=== PATIENT | female | born 1985 | race African-American/Black ===

== ENCOUNTER 2017-11-28 09:37 | Emergency (ER) | payer OTHER ==
[~2017-11-28] VITALS: Ht 160 cm; Wt 61.7 kg
[~2017-11-28 09:37] MED LIST: BUTALB-APAP-CA1 EACH PO; MACROBID 100 M100 M1 PO; PRENATE AM TAB1 EACH; ZOFRAN ODT4 MG PO
[2017-11-28] MEDS ORDERED: NORFLEX100 MG PO (11:33)
[2017-11-28] MEDS ORDERED: IBUPROFEN 800800 M1 PO (11:33)
[2017-11-28 13:25] VITALS: BP 106/74
== END 2017-11-28 12:05 | disposition home or self-care (01) ==
LOC: ER 09:37
DX: S16.1XXA Strain of muscle, fascia and tendon at neck level, initial encounter (principal); S39.012A Strain of muscle, fascia and tendon of lower back, initial encounter; S09.93XA Unspecified injury of face, initial encounter; S00.11XA Contusion of right eyelid and periocular area, initial encounter; M54.6 Pain in thoracic spine; Z88.0 Allergy status to penicillin; V89.2XXA Person injured in unspecified motor-vehicle accident, traffic, initial encounter; Y93.89 Activity, other specified; Y92.89 Other specified places as the place of occurrence of the external cause; Y99.8 Other external cause status

== ENCOUNTER 2021-06-29 13:01 | Emergency (ER) | payer OTHER ==
[~2021-06-29] VITALS: Ht 160 cm; Wt 68.0 kg
[~2021-06-29 13:01] MED LIST changes: +IBUPROFEN 800800 M1 PO; +NORFLEX100 MG PO
[2021-06-29 13:16] LABS: URINE BILIRUBIN NEGATIVE (Negative); URINE BLOOD 1+ (Negative); URINE CLARITY CLEAR; URINE COLOR YELLOW; URINE GLUCOSE-RANDOM* NEGATIVE (Negative); URINE KETONES NEGATIVE (Negative); URINE LEUKOCYTES-REFLEX NEGATIVE (Negative); URINE NITRITE-REFLEX NEGATIVE (Negative); URINE PROTEIN (DIPSTICK) NEGATIVE (Negative); URINE UROBILINOGEN 0.2 E.U./dl (0.2-1.0)
[2021-06-29 13:25] LABS: SQUAMOUS 0-3 Few /LPF (0-3)
[2021-06-29 13:26] LABS: BACTERIA-REFLEX 1-9 Few /HPF (None Seen); CASTS None Seen /LPF (None Seen); CRYSTALS None Seen /LPF (None Seen); URINE RBC 1-2 Rare /HPF (NONE SEEN); URINE WBC-REFLEX None Seen /HPF (0-5)
[2021-06-29 14:00] LABS: ABSOLUTE NEUTROPHILS 4.9 thou/uL (1.4-8.2); BASOPHILS 0.5 % (0.0-2.0); EOSINOPHILS 1.5 % (0.0-3.0); HEMATOCRIT 39.6 % (37.0-47.0); LYMPHOCYTES 21.9 % (24.0-44.0); MCH 28.3 pg (26.0-34.0); MCHC 32.7 g/dL (28.0-37.0); MCV 86.5 fL (80.0-100.0); MONOCYTES 8.1 % (1.0-8.0); PLATELET COUNT 179 thou/uL (150-400); RBC 4.58 mil/uL (4.20-5.00); RDW 13.6 % (10.5-14.5); WBC 7.2 thou/uL (4.0-11.0)
[2021-06-29] MEDS ORDERED: MOBIC7.5 MG PO (14:29)
[2021-06-29 15:43] VITALS: BP 123/86
== END 2021-06-29 16:36 | disposition home or self-care (01) ==
LOC: ER 13:01
PROVIDERS: Nurse Practitioner
DX: N93.8 Other specified abnormal uterine and vaginal bleeding (principal); Z79.1 Long term (current) use of non-steroidal anti-inflammatories (NSAID); Z79.899 Other long term (current) drug therapy; Z88.0 Allergy status to penicillin